=== PATIENT | male | born 1980 | race Two or more races ===

== ENCOUNTER 2017-02-08 02:32 | Emergency (ER) | payer OTHER ==
[~2017-02-08] VITALS: Ht 180.3 cm; Wt 66.2 kg
[2017-02-08 02:35] VITALS: BP 121/72
--- NOTE | 2017-02-08 03:34 | NUR ---
PT FRIEND AT BEDSIDE. PENDING DISCHARGE. ER MD AT BEDSIDE TALKING TO PT AND OT FRIEND.
--- NOTE | 2017-02-08 03:43 | NUR ---
PT LEFT WITHOUT ACI
== END 2017-02-08 03:47 | disposition home or self-care (01) ==
LOC: ER 02:34
DX: F10.129 Alcohol abuse with intoxication, unspecified (principal)
CPT/HCPCS: 99283; A4606; Z7610

== ENCOUNTER 2017-09-15 13:41 | Emergency (ER) | payer OTHER ==
[~2017-09-15] VITALS: Ht 182.9 cm; Wt 77.1 kg
--- NOTE | 2017-09-15 14:00 | NUR ---
PATIENT TO ED DT NERVOUSNESS AND HEART FELLS LIKE ITS BEATING FAST X 1 WK NOW-- PT IS AWAKE AND ALERT. VSS. ADMITTED ALCOHOL CONSUMPTIOM LAST NIGHT.
[2017-09-15 14:30] LABS: BASOPHILS # (AUTO) 0.1 /CMM (0.0-0.2); BASOPHILS % (AUTO) 1.2 % (0.0-2.0); EOSINOPHILS % (AUTO) 0.8 % (0.0-6.0); HEMATOCRIT 40 % (39-51); HEMOGLOBIN 12.5 g/dL (13.5-17.5); LYMPHOCYTES # (AUTO) 2.1 /CMM (0.8-4.8); MEAN CORPUSCULAR HGB CONC 31 g/dl (31.0-36.0); MEAN CORPUSCULAR VOLUME 66 fL (80-96); MONOCYTES # (AUTO) 0.5 /CMM (0.1-1.30); MONOCYTES % (AUTO) 7.6 % (2.0-12.0); NEUTROPHILS # (AUTO) 3.6 /CMM (1.8-8.9); NEUTROPHILS % (AUTO) 57.4 % (43.0-81.0); PLATELET COUNT (AUTO) 189 /CMM (150-450); RDW COEFFICIENT OF VARIATION 16.1 (11.5-15.0); RED BLOOD CELL COUNT(AUTO) 6.09 MIL/uL (4.5-6.0); WHITE BLOOD COUNT (AUTO) 6.4 K/uL (4.3-11.0)
[2017-09-15 14:42] LABS: CALCIUM, SERUM 8.9 mg/dL (8.5-10.1); CREATININE 0.9 mg/dL (0.6-1.3); POTASSIUM 3.7 mmol/L (3.5-5.1)
[2017-09-15 14:51] LABS: ALBUMIN 3.7 g/dL (3.4-5.0); BILIRUBIN,DIRECT 0.3 mg/dL (0.0-0.2); BILIRUBIN,TOTAL 0.9 mg/dL (0.2-1.0); TOTAL PROTEIN, SERUM 7.2 g/dL (6.4-8.2)
[2017-09-15 14:55] LABS: ALCOHOL, BLOOD < 3 mg/dL (0-0)
[2017-09-15] MEDS ORDERED: LORAZEPAM 1 MG TABLET PO ONE (15:00)
[2017-09-15 15:08] LABS: THYROID STIMULATING HORMONE 0.237 uIU/mL (0.358-3.74)
[2017-09-15 15:42] LABS: APPEARANCE,URINE CLEAR (CLEAR); BILIRUBIN,URINE 1+ (NEGATIVE); BLOOD, URINE TRACE-INTA Ery/uL (NEGATIVE); COLOR,URINE YELLOW (YELLOW); KETONES,URINE NEGATIVE (NEGATIVE); LEUKOCYTE ESTERASE ,URINE NEGATIVE (NEGATIVE); NITRITE, URINE NEGATIVE (NEGATIVE); PROTEIN,URINE TRACE mg/dl (NEGATIVE); UGLUCOSE NEGATIVE (NEGATIVE)
[2017-09-15 15:59] LABS: BACTERIA,URINE None seen /HPF (None Seen); SQUAMOUS EPITHELIAL CELL,UR Few /HPF (None Seen); WBC,URINE 0-2 /HPF (0-3)
[2017-09-15 16:40] VITALS: BP 124/80
--- NOTE | 2017-09-15 16:40 | NUR ---
Patient discharged to home in stable condition. Written and verbal after care instructions given. Patient verbalizes understanding of instruction.IV removed. Catheter intact and site benign. Pressure and 4x4 applied to site. No bleeding noted.
== END 2017-09-15 16:41 | disposition home or self-care (01) ==
LOC: ER 13:42
DX: F41.9 Anxiety disorder, unspecified (principal); R79.89 Other specified abnormal findings of blood chemistry; F17.200 Nicotine dependence, unspecified, uncomplicated
CPT/HCPCS: 36415; 71045-TC; 80048-TC; 80076-TC; 80305; 81000-TC; 84443-TC; 85025-TC; A4606; G0480; Z7610

== ENCOUNTER 2017-12-21 01:31 | Emergency (ER) | payer OTHER ==
[~2017-12-21] VITALS: Ht 182.9 cm; Wt 64.0 kg
--- NOTE | 2017-12-21 01:48 | NUR ---
PT AMBULATORY TO ER BED 13. BIBFRIEND C/O DEPRESSION, ETOH, NO APPETITE, POOR HYIGENE X 2 MONTHS. PER LUCIA, PT DX WITH HEP C 2 MONTHS AGO. PT PLACED ON [employer]. VSS/RESP EVEN UNLABORED/NAD NOTED/SKIN WARM AND DRY/AFEBRILE/DENIES N-V-D/AOX4. AWAITNG MD JONES.
--- NOTE | 2017-12-21 01:50 | NUR ---
URINE SPECIMEN OBTAINED AND SENT TO THE LAB.
[2017-12-21] MEDS ORDERED: LORAZEPAM INJ 2 MG/ML VIAL ONE (02:10)
--- NOTE | 2017-12-21 02:25 | NUR ---
18G IV TO L HAND X 1 ATTEMPT USING ASEPTIC TECH, BLOOD HANDED OVER TO THE LAB AT BEDSIDE. IV FLUSHES EASILY WITH NS, NO S/S INFILTRATION NOTED AT THIS TIME.
[2017-12-21] MEDS ORDERED: IV NS 0.9% 1,000 ML BAG IV ONE (02:30)
[2017-12-21] MEDS ORDERED: LORAZEPAM INJ 2 MG/ML VIAL IVP ONE (02:30)
--- NOTE | 2017-12-21 02:30 | NUR ---
XRAY AT BEDSIDE.
[2017-12-21 03:00] LABS: APPEARANCE,URINE CLEAR (CLEAR); BILIRUBIN,URINE NEGATIVE (NEGATIVE); BLOOD, URINE NEGATIVE Ery/uL (NEGATIVE); COLOR,URINE YELLOW (YELLOW); KETONES,URINE NEGATIVE (NEGATIVE); LEUKOCYTE ESTERASE ,URINE NEGATIVE (NEGATIVE); NITRITE, URINE NEGATIVE (NEGATIVE); PROTEIN,URINE NEGATIVE (NEGATIVE); UGLUCOSE NEGATIVE (NEGATIVE); UROBILINOGEN,URINE 0.2 EU/dL (0.2)
[2017-12-21] MEDS ORDERED: OLANZAPINE 10 MG VIAL IM ONE ×2 (03:00→03:05)
[2017-12-21 03:05] LABS: HEMATOCRIT 35 % (39-51); HEMOGLOBIN 11.3 g/dL (13.5-17.5); MEAN CORPUSCULAR HEMOGLOBIN 23 PG (26.0-33.0); MEAN CORPUSCULAR HGB CONC 32 g/dl (31.0-36.0); MEAN CORPUSCULAR VOLUME 70 fL (80-96); PLATELET COUNT (AUTO) 164 /CMM (150-450); RDW COEFFICIENT OF VARIATION 17.3 (11.5-15.0); RED BLOOD CELL COUNT(AUTO) 4.99 MIL/uL (4.5-6.0); WHITE BLOOD COUNT (AUTO) 6.9 K/uL (4.3-11.0)
[2017-12-21 03:06] LABS: BASOPHILS # (AUTO) 0.1 /CMM (0.0-0.2); BASOPHILS % (AUTO) 1.9 % (0.0-2.0); EOSINOPHILS % (AUTO) 1.7 % (0.0-6.0); LYMPHOCYTES # (AUTO) 2.8 /CMM (0.8-4.8); LYMPHOCYTES % (AUTO) 39.9 % (20.0-44.0); MONOCYTES # (AUTO) 0.8 /CMM (0.1-1.30); MONOCYTES % (AUTO) 10.9 % (2.0-12.0); NEUTROPHILS # (AUTO) 3.2 /CMM (1.8-8.9); NEUTROPHILS % (AUTO) 45.6 % (43.0-81.0)
[2017-12-21 03:11] LABS: CALCIUM, SERUM 7.4 mg/dL (8.5-10.1); CARBON DIOXIDE 27 mmol/L (21-32); CHLORIDE 99 mmol/L (98-107); CREATININE 0.7 mg/dL (0.6-1.3); GLUCOSE 127 mg/dL (74-106); POTASSIUM 4.2 mmol/L (3.5-5.1); SODIUM SERUM 135 mmol/L (136-145); UREA NITROGEN, BLOOD 6 mg/dL (7-18)
[2017-12-21 03:17] LABS: TROPONIN I < 0.017 ng/mL (0.00-0.056)
[2017-12-21 03:19] LABS: ALANINE AMINOTRANSFERASE 249 U/L (12-78); ALBUMIN 2.9 g/dL (3.4-5.0); ALCOHOL, BLOOD 165 mg/dL (0-0); ALKALINE PHOSPHATASE 161 U/L (46-116); ASPARTATE AMINOTRANSFERASE 304 U/L (15-37); BILIRUBIN,DIRECT 0.9 mg/dL (0.0-0.2); TOTAL PROTEIN, SERUM 5.6 g/dL (6.4-8.2)
[2017-12-21 03:21] LABS: ACETAMINOPHEN 0 ug/ml (10-30)
[2017-12-21 03:24] LABS: CREATINE KINASE, TOTAL 110 U/L (39-308)
--- NOTE | 2017-12-21 04:16 | NUR ---
PT AMBULATORY TO THE RESTROOM WITH STEADY GAIT.
--- NOTE | 2017-12-21 04:46 | NUR ---
IV removed. Catheter intact and site benign. Pressure and 4x4 applied to site. No bleeding noted. Patient discharged with friends to home in stable condition. Written and verbal after care instructions given, patient instructed not to drive. Patient verbalizes understanding of instruction. Patient is awake and alert to self, day, and place. Patient ambulatory with a steady gait.
[2017-12-21 04:48] VITALS: BP 118/72
== END 2017-12-21 04:49 | disposition home or self-care (01) ==
LOC: ER 01:31
DX: K70.10 Alcoholic hepatitis without ascites (principal); F10.10 Alcohol abuse, uncomplicated; F41.9 Anxiety disorder, unspecified; F17.200 Nicotine dependence, unspecified, uncomplicated; Y90.9 Presence of alcohol in blood, level not specified
CPT/HCPCS: 36415; 71045; 80048; 80076; 80305; 80329; 81001; 82550; 84443; 84484; 85025; 93005; 96372; 96374; 99285; A4606; G0480 ×2; J2060; J3490; J7030; Z7610; 81000-TC

== ENCOUNTER 2020-09-12 20:57 | Emergency (ER) | payer OTHER ==
[~2020-09-12] VITALS: Ht 182.9 cm; Wt 70.3 kg
[2020-09-12] MEDS ORDERED: LORAZEPAM INJ 2 MG/ML VIAL IM ONE (22:00)
[2020-09-12] MEDS ORDERED: TDAP [DIPH/PERTUSSIS/TET] 0.5 ML VIAL IM ONE ×2 (22:00→22:13)
[2020-09-12] MEDS ORDERED: LORAZEPAM INJ 2 MG/ML VIAL ONE (22:13)
--- NOTE | 2020-09-12 22:20 | NUR ---
VIDHYA TO ER BED 11. AWAKE, ALERT BUT INTOXICATED. NOT IN RESP DISTRESS, BRAETHING EVEN AND UNLABORED. BROUGHT IN FOR ALCOHOL INTOXICATED AND OBTAINED A ABRASSION ON L EYEBROW A CHEEK. EMS REPORTS THAT HE WAS GOING UP THE [place] AND FELL DOWN. PT WAS CT TO CT. ORDERS RECEIVED, NTOED AND CARRIED OUT.
--- NOTE | 2020-09-13 04:21 | NUR ---
PT ASLEEP, VSS.
--- NOTE | 2020-09-13 07:03 | NUR ---
PT AWAKE, WATCHING TV.
--- NOTE | 2020-09-13 07:10 | NUR ---
CALLED FOR BREAKFAST.
[2020-09-13 08:02] VITALS: BP 120/78
--- NOTE | 2020-09-13 08:02 | NUR ---
Patient discharged to home in stable condition. Written and verbal after care instructions given. Patient verbalizes understanding of instruction.
== END 2020-09-13 08:02 | disposition home or self-care (01) ==
LOC: ER 21:00
DX: S00.83XA Contusion of other part of head, initial encounter (principal); S00.212A Abrasion of left eyelid and periocular area, initial encounter; F10.129 Alcohol abuse with intoxication, unspecified; F17.200 Nicotine dependence, unspecified, uncomplicated; W10.8XXA Fall (on) (from) other stairs and steps, initial encounter; Y93.01 Activity, walking, marching and hiking; Y92.038 Other place in apartment as the place of occurrence of the external cause; Y99.8 Other external cause status; Y90.9 Presence of alcohol in blood, level not specified
CPT/HCPCS: 70450; 90471; 90715; 96372; 99284; J2060